=== PATIENT | male | born 1945 | race American Indian/Alaskan Native ===

== ENCOUNTER 2018-09-10 16:08 | Emergency (ER) | payer MEDICARE ==
[2018-09-10 17:04] LABS: Basophils # (Auto) 0.1 K/mm3 (0.0-0.1); Basophils % (Auto) 0.7 % (0.0-1.8); Eosinophils # (Auto) 0.2 K/mm3 (0.0-0.4); Eosinophils % (Auto) 2.6 % (0.0-4.3); Hematocrit 45.4 % (35.5-45.6); Hemoglobin 14.8 gm/dl (11.8-15.2); Lymphocytes # (Auto) 2.9 K/mm3 (1.2-5.4); Lymphocytes % (Auto) 39.8 % (13.4-35.0); Mean Corpuscular HGB Conc 33 % (32-34); Mean Corpuscular Volume 90 fl (84-94); Monocytes # (Auto) 0.8 K/mm3 (0.0-0.8); Monocytes % (Auto) 10.2 % (0.0-7.3); Platelet Count 130 K/mm3 (140-440); Red Blood Count 5.03 M/mm3 (3.65-5.03); Red Cell Distribution Width 14.9 % (13.2-15.2)
[2018-09-10] MEDS ORDERED: KEPPRA 1,000 MG in NACL 0.9% 100 ML IV ONE (17:14)
[2018-09-10 17:15] LABS: INR 0.96 (0.87-1.13)
[2018-09-10 17:16] LABS: Partial Thromboplastin Time 28.2 Sec. (24.2-36.6); Thrombin Time 15.5 Sec. (15.1-19.6)
[2018-09-10 17:25] LABS: Creatine Kinase MB 2.2 ng/mL (0.0-4.0)
[2018-09-10 17:27] LABS: Alanine Aminotransferase 22 units/L (7-56); Albumin 4.2 g/dL (3.9-5); BUN/Creatinine Ratio 20; Blood Urea Nitrogen 22 mg/dL (9-20); Calcium 9.6 mg/dL (8.4-10.2); Hemolysis Index 7
[2018-09-10] MEDS ORDERED: KEPPRA 1,000 MG/NS 0.75% 100ML 1,000 MG/100 ML BAG IV ONE (17:30)
[2018-09-10 17:57] LABS: Bilirubin,Urine NEG (Negative); Blood,Urine NEG (Negative); Color,Urine Yellow (Yellow); Mucus,Urine FEW /HPF; Protein,Urine <15 mg/dL mg/dL (Negative); Urobilinogen,Urine < 2.0 mg/dL (<2.0); WBC,Urine < 1.0 /HPF (0.0-6.0)
--- NOTE | 2018-09-10 18:05 | Emergency Department Report ---
ED Seizure HPI - General Chief Complaint: Neuro Symptoms/Deficit Stated Complaint: POSS SEIZURE Time Seen by Provider: 09/10/18 16:28 Source: EMS Mode of arrival: Stretcher Limitations: No Limitations - History of Present Illness Initial Comments: 73-year-old male with possible seizure presents to ED. Patient was driving, when he began to feel funny. The patient states he felt hot all over. was in the passenger seat, and noticed that the patient did not look right, so told him to pull the car over. The patient's got out of the car and walked over to the short haul driver's side. She states she instructed the patient to put the car in park, the patient did not seem to respond, so she reached over and put the car in park herself. She states patient had a blank stare and was unresponsive. Patient also had urinary incontinence during this time. She states this episode lasted approximately 3 minutes. When patient came out of it, he was confused. denies any tonic-clonic movements. Patient states this happened approximately one year ago while he was at the [facility], but he did not tell his about it, and was never worked up for it. Accucheck with EMS was 100. Patient currently back to baseline. MD Complaint: possible seizure -: This afternoon Description of Episode: loss of consciousness, bladder incontinence, post-event confusion Duration of Episode: 3 -: minutes(s) Witnessed:: Yes Trauma: No Seizure History: none Place: street/outdoors Possible Precipitating Event: none Associated Symptoms: denies other symptoms - Related Data Previous Rx's Medication Instructions Recorded Last Taken Type levETIRAcetam [Keppra] 500 mg PO BID #60 tablet 09/10/18 Unknown Rx Allergies Allergy/AdvReac Type Severity Reaction Status Date / Time No Known Allergies Allergy Unverified 09/10/18 16:41 ED Review of Systems ROS: Stated complaint: POSS SEIZURE Other details as noted in HPI Comment: All other systems reviewed and negative Constitutional: denies: chills, fever Respiratory: denies: cough, shortness of breath Cardiovascular: denies: chest pain Gastrointestinal: denies: abdominal pain, vomiting, diarrhea Neurological: other (reports possible seizure). denies: headache ED Past Medical Hx - Past Medical History Previous Medical History?: Yes Hx Hypertension: Yes Additional medical history: high cholesterol - Social History Smoking Status: Current Every Day Smoker Substance Use Type: None - Medications Home Medications: Home Medications Medication Instructions Recorded Confirmed Last Taken Type levETIRAcetam [Keppra] 500 mg PO BID #60 tablet 09/10/18 Unknown Rx ED Physical Exam - General Limitations: No Limitations General appearance: alert, in no apparent distress - Head Head exam: Present: atraumatic, normocephalic - Eye Eye exam: Present: normal appearance - ENT ENT exam: Present: mucous membranes moist - Neck Neck exam: Present: normal inspection - Respiratory Respiratory exam: Present: normal lung sounds bilaterally. Absent: respiratory distress - Cardiovascular Cardiovascular Exam: Present: regular rate, normal rhythm - GI/Abdominal GI/Abdominal exam: Present: soft. Absent: distended, tenderness - Extremities Exam Extremities exam: Present: normal inspection - Neurological Exam Neurological exam: Present: alert, oriented X3, CN II-XII intact. Absent: motor sensory deficit - Psychiatric Psychiatric exam: Present: normal affect, normal mood - Skin Skin exam: Present: warm, dry, intact, normal color ED Course Vital Signs 09/10/18 09/10/18 09/10/18 16:28 16:29 18:00 Temperature 98.1 F 98.1 F Pulse Rate 71 71 86 Respiratory 16 12 Rate Blood Pressure 129/64 Blood Pressure 129/64 138/70 [Left] O2 Sat by Pulse 94 94 98 Oximetry 09/10/18 18:38 Temperature 98.2 F Pulse Rate Respiratory Rate Blood Pressure Blood Pressure [Left] O2 Sat by Pulse Oximetry ED Medical Decision Making - Lab Data Result diagrams: 09/10/18 16:50 09/10/18 16:50 - EKG Data -: EKG Interpreted by [facility] EKG shows normal: sinus rhythm, axis, intervals, QRS complexes, ST-T waves Rate: normal - EKG Data Interpretation: no acute changes - Radiology Data Radiology results: report reviewed, image reviewed - Medical Decision Making 73 year old male with likely seizure activity while driving. reported patient became unresponsive and had urinary incontinence. Patient reports previous episode 1 year ago, however, was never worked up for it. CT head shows no acute findings. Patient currently back at baseline, no neuro deficits present. Keppra bolus given here in ED, no further seizure activities. Patient advised against driving until he follows up with a neurologist and gets clearance from them. Return precautions given. Prescription given for Keppra 500 mg twice a day. - Differential Diagnosis seizure, TIA, electrolyte abnormality Critical care attestation.: If time is entered above; I have spent that time in minutes in the direct care of this critically ill patient, excluding procedure time. ED Disposition Clinical Impression: Seizure Disposition: TO HOME OR SELFCARE Is pt being admited?: No Condition: Stable Instructions: Recurrent Seizures Adult (ED) Prescriptions: levETIRAcetam [Keppra] 500 mg PO BID #60 tablet Referrals: PRIMARY MD [place] [Referring] - 3-5 Days BLAINE BELCHER MD [Referring] - 3-5 Days Time of Disposition: 19:01
--- NOTE | 2018-09-10 18:41 | Cat Scan Report ---
PROCEDURE: CT HEAD/BRAIN WO CON TECHNIQUE: 805.45 HISTORY: seizure COMPARISONS: None FINDINGS: There is no evidence of an acute intracranial process, intracranial hemorrhage or mass effect. The ventricles are normal size. There is atherosclerotic vascular calcification of the internal carotid arteries bilaterally and righ t vertebral artery at the skull base. 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 There is no evidence of fracture. IMPRESSION: 1. No evidence of an acute intracranial process, intracranial hemorrhage or mass effect. If there is no clinical contraindication, MRI of the brain may be helpful for further evaluation. 2. Atherosclerotic vascular calcification. 3. Evidence of previous left globe banding procedure. This document is electronically signed by Minna Carrillo MD., September 10 2018 06:38:57 PM ET
[2018-09-10 18:42] VITALS: BP 138/70
== END 2018-09-10 19:16 | disposition home or self-care (01) ==
LOC: ED 16:08
DX: R56.9 Unspecified convulsions (principal); R39.81 Functional urinary incontinence; I10 Essential (primary) hypertension; E78.00 Pure hypercholesterolemia, unspecified; F17.200 Nicotine dependence, unspecified, uncomplicated
CPT/HCPCS: 36415; 70450; 80053; 81001; 82550; 82553; 82962; 84484; 85025; 85610; 85670; 85730; 93005; 93010; 96374; 99285; J1953